=== PATIENT | female | born 1950 | race Two or more races ===

== ENCOUNTER → 2016-10-07 | Day surgery (SDC) | payer MEDICARE, OTHER ==
[2016-10-01 17:06] LABS: Basophils # (auto) 0.1 uL; Basophils % (auto) 0.6 % (0.0-2.0); Eosinophils # (auto) 0.4 uL; Eosinophils % (auto) 4.4 % (0.0-7.0); Hematocrit 43.2 % (36.0-46.0); Hemoglobin 14.3 g/dL (12.2-16.2); Lymphocytes # (auto) 3.2 uL; Lymphocytes % (auto) 32.8 % (10.0-50.0); Mean Corpuscular Hemoglobin 30.3 pg (28.0-32.0); Mean Corpuscular Hgb Conc. 33.1 g/dL (32.0-36.0); Mean Corpuscular Volume 91.7 fL (80.0-100.0); Mean Platelet Volume 9.6 fL (7.4-10.4); Neutrophils # (auto) 5.2 uL; Neutrophils % (auto) 52.2 % (37.0-80.0); Platelet Count (auto) 299 10^3/uL (140-450); Red Cell Distribution Width 14.6 % (11.6-16.0); White Blood Cell 9.9 10^3/uL (4.4-10.8)
[2016-10-01 17:07] LABS: Albumin 3.5 g/dL (3.4-5.0); Bilirubin, Total 0.5 mg/dL (0.2-1.0); Calcium 10.2 mg/dL (8.5-10.1); INR 1.06 (0.9-1.15); Partial Thromboplastin Time 26.1 sec (22.64-33.71); Potassium 4.1 mmol/L (3.5-5.1); Prothrombin Time 11.4 sec (9.37-12.3); Total Protein 8.1 g/dL (6.4-8.2)
[2016-10-01 17:21] LABS: Urine Bilirubin Negative (Negative); Urine Blood Negative /uL (Negative); Urine Color Yellow (Yellow); Urine Glucose Normal (Normal); Urine Ketone Negative (Negative); Urine Mucus FEW (None Seen); Urine Nitrite Negative (Negative); Urine RBC <1 /hpf (0 - 4); Urine Squamous Epithelial Cell FEW /hpf (<5); Urine Urobilinogen Normal (Negative)
[~2016-10-07] VITALS: Ht 154.9 cm; Wt 62.6 kg
[~2016-10-07] MED LIST: AML5T PO; BETAMETHASONE ACET (6MG/ML) 5ML VIAL ONE; BUPIVACAINE 0.25% INJ 50ML VIAL ONE; CALC1TAB47 PO; LOSA100T26 PO; METF-312 PO; MIDAZOLAM HCL 1MG/1ML-2 ML VIAL ONE; MORPHINE SULF INJ 2 MG/ML SYRINGE 1ML IV PRN; MULT1TAB69 PO; NATE120T5 PO; ONDANSETRON HCL 4 MG/2 ML VIAL IV ONE; PROPOFOL 10 MG/ML 20 ML IV ONE; ceFAZolin 1GM/50ML D5W 50 ML IV ONE; ePHEDrine SULFATE 50 MG/ML AMP IV PRN; fentaNYL CITRATE 100 MCG/2 ML VL ONE; hydrALAZINE HCL 20 MG/ML VL IV PRN
[2016-10-07 11:10] VITALS: BP 145/74
== END | disposition home or self-care (01) ==
LOC: SUR 07:49
PROVIDERS: ATTEND Orthopaedic Surgery
DX: M75.01 Adhesive capsulitis of right shoulder (principal); E11.9 Type 2 diabetes mellitus without complications; Z90.710 Acquired absence of both cervix and uterus; Z90.49 Acquired absence of other specified parts of digestive tract
CPT/HCPCS: 20610; 23700; 36415; 80053; 81001; 82962; 83036; 85025; 85610; 85730; J0690; J0702; J2250; J2270; J2704; J3010; J3490